=== PATIENT | female | born 1940 | race Caucasian/White ===

== ENCOUNTER → 2016-05-10 | Outpatient (CLI) | payer MEDICARE ==
[~2016-05-10] MED LIST: ALBU18HF INH; ALBU6.7H INH; ASPI325T4 PO; BIOT1CAP3 PO; BUTA1CAP30 PO; CALC1TAB90 PO; CHOL2000 PO; CIME200T4 PO; COD1CAPS2 PO; CODE30TA3 PO; FAMO40TA61 PO; FLUN25SP NAS; FLUT1DIS3 INH; GLUC1TAB35 PO; GUAI-103 PO; GUAI118L19 PO; HYDR-882 PO; HYDR12.53 PO; IBAN150T PO; LISI-167 PO; LORA10TA75 PO; LOVA40TA2 PO; MAGN100T6 PO; OXAZ15CA PO; PHEN-418 PO; POTASSIUM BICARB PO; PRED10TA14 PO; TIOT18CA INH
== END | disposition home or self-care (01) ==
LOC: ROC 07:57
PROVIDERS: ATTEND Radiology Radiation Oncology
DX: C34.11 Malignant neoplasm of upper lobe, right bronchus or lung (principal); J44.9 Chronic obstructive pulmonary disease, unspecified; Z87.891 Personal history of nicotine dependence
CPT/HCPCS: G0463

== ENCOUNTER → 2016-09-12 | Outpatient (CLI) | payer MEDICARE ==
[2016-09-12 15:55] LABS: ASPARTATE AMINO TRANSFERASE 18 U/L (15-37); BLOOD UREA NITROGEN 11 mg/dL (7-18)
== END | disposition home or self-care (01) ==
LOC: CFH 13:05
PROVIDERS: ATTEND Internal Medicine Hematology & Oncology
DX: Z51.11 Encounter for antineoplastic chemotherapy (principal); C34.11 Malignant neoplasm of upper lobe, right bronchus or lung
CPT/HCPCS: 36415; 80053; 85025

== ENCOUNTER → 2017-01-25 | Outpatient (CLI) | payer MEDICARE ==
[~2017-01-25] MED LIST changes: +ASPI325T17 PO; -ASPI325T4 PO; -CIME200T4 PO; +CIME200T6 PO
== END | disposition home or self-care (01) ==
LOC: ROC 08:30
PROVIDERS: ATTEND Radiology Radiation Oncology
DX: C34.11 Malignant neoplasm of upper lobe, right bronchus or lung (principal)
CPT/HCPCS: G0463

== ENCOUNTER → 2017-03-27 | Outpatient (CLI) | payer MEDICARE ==
[2017-03-27 12:46] LABS: ANION GAP 4 mmol/L (5-15); CALCIUM 8.4 mg/dL (8.5-10.1); CHLORIDE 108 mmol/L (98-107); CREATININE 0.85 mg/dL (0.55-1.02)
== END | disposition home or self-care (01) ==
LOC: CFH 10:50
PROVIDERS: ATTEND Internal Medicine Hematology & Oncology
DX: C34.11 Malignant neoplasm of upper lobe, right bronchus or lung (principal)
CPT/HCPCS: 36415; 80048

== ENCOUNTER → 2017-04-11 | Outpatient (CLI) | payer MEDICARE | END | disposition home or self-care (01) | LOC: ROC 10:56 | PROVIDERS: ATTEND Radiology Radiation Oncology | DX: Z08 Encounter for follow-up examination after completed treatment for malignant neoplasm (principal); C34.91 Malignant neoplasm of unspecified part of right bronchus or lung; Z79.82 Long term (current) use of aspirin | CPT/HCPCS: G0463 ==

== ENCOUNTER → 2017-08-26 | Outpatient (CLI) | payer MEDICARE ==
[2017-08-26 12:31] LABS: BASOPHILS # (AUTO) 0.03 x10^3/uL (0-0.1); BASOPHILS % (AUTO) 0 % (0-1); EOSINOPHILS # (AUTO) 0.07 x10^3/uL (0-0.4); EOSINOPHILS % (AUTO) 1 % (1-7); LYMPHOCYTES # (AUTO) 1.26 x10^3/uL (1-3.4); LYMPHOCYTES % (AUTO) 18 % (22-44); MD NO; MEAN CORPUSCULAR HEMOGLOBIN 28.5 pg (27.0-34.8); MEAN CORPUSCULAR HGB CONC 32.9 g/dL (32.4-35.8); MEAN CORPUSCULAR VOLUME 86.7 fL (80-100); MEAN PLATELET VOLUME 8.1 fL (7.4-10.4); MONOCYTES # (AUTO) 0.21 x10^3/uL (0.2-0.8); MONOCYTES % (AUTO) 3 % (2-9); NEUTROPHILS # (AUTO) 5.41 x10^3/uL (1.8-6.8); NEUTROPHILS % (AUTO) 78 % (42-75); PLATELET COUNT 267 x10^3/uL (130-400); RED BLOOD COUNT 4.71 x10^6/uL (3.82-5.3); RED CELL DISTRIBUTION WIDTH 14.2 % (9.6-15.2)
[2017-08-26 12:41] LABS: ALANINE AMINOTRANSFERASE 34 U/L (12-78); ALBUMIN 3.9 g/dL (3.4-5.0); ANION GAP 6 mmol/L (5-15); CALCIUM 9.1 mg/dL (8.5-10.1); CHLORIDE 106 mmol/L (98-107); CHOLESTEROL, TOTAL 192 mg/dL (140-239)
[2017-08-26 12:44] LABS: ALKALINE PHOSPHATASE 53 U/L (45-117); BILIRUBIN,TOTAL 0.5 mg/dL (0.2-1.0); CHOL/HDL RATIO 2.4; CREATINE KINASE, TOTAL 41 U/L (26-192); CREATININE 0.88 mg/dL (0.55-1.02); HDL CHOL % 42 % (28-40); HDL CHOLESTEROL (DIRECT) 81 mg/dL (40-60); LDL CHOLESTEROL,CALCULATED 88 mg/dL (54-169); LDL/HDL RATIO 1.1 (0.5-3.0); TOTAL PROTEIN 6.9 g/dL (6.4-8.2); TRIGLYCERIDES 115 mg/dL (50-200); VLDL CHOLESTEROL 23 mg/dL (0-25)
== END | disposition home or self-care (01) ==
LOC: CFH 09:11
PROVIDERS: ATTEND Internal Medicine Hematology & Oncology
DX: C34.11 Malignant neoplasm of upper lobe, right bronchus or lung (principal); E78.2 Mixed hyperlipidemia
CPT/HCPCS: 36415; 80053; 80061; 82550; 85025

== ENCOUNTER → 2017-09-16 | Outpatient (CLI) | payer MEDICARE ==
[~2017-09-16] MED LIST changes: -OXAZ15CA PO; +OXAZ15CA3 PO
== END | disposition home or self-care (01) ==
LOC: ROC 08:36
PROVIDERS: ATTEND Radiology Radiation Oncology
DX: C34.11 Malignant neoplasm of upper lobe, right bronchus or lung (principal)
CPT/HCPCS: G0463

== ENCOUNTER → 2018-02-19 | Outpatient (CLI) | payer MEDICARE ==
[~2018-02-19] MED LIST changes: +HYDR-3653 PO; -HYDR-882 PO; +HYDR12.517 PO; -HYDR12.53 PO
[2018-02-19 12:33] LABS: BASOPHILS # (AUTO) 0.01 x10^3/uL (0-0.1); BASOPHILS % (AUTO) 0 % (0-1); EOSINOPHILS # (AUTO) 0.13 x10^3/uL (0-0.4); EOSINOPHILS % (AUTO) 2 % (1-7); LYMPHOCYTES # (AUTO) 1.56 x10^3/uL (1-3.4); LYMPHOCYTES % (AUTO) 21 % (22-44); MD NO; MEAN CORPUSCULAR HEMOGLOBIN 28.4 pg (27.0-34.8); MEAN CORPUSCULAR HGB CONC 33.1 g/dL (32.4-35.8); MEAN PLATELET VOLUME 8.1 fL (7.4-10.4); MONOCYTES # (AUTO) 0.38 x10^3/uL (0.2-0.8); MONOCYTES % (AUTO) 5 % (2-9); NEUTROPHILS # (AUTO) 5.29 x10^3/uL (1.8-6.8); NEUTROPHILS % (AUTO) 72 % (42-75); PLATELET COUNT 276 x10^3/uL (130-400); RED BLOOD COUNT 4.48 x10^6/uL (3.82-5.3); RED CELL DISTRIBUTION WIDTH 15.4 % (9.6-15.2)
[2018-02-19 12:58] LABS: ALANINE AMINOTRANSFERASE 27 U/L (12-78); ALBUMIN 3.7 g/dL (3.4-5.0); ANION GAP 8 mmol/L (5-15); CALCIUM 9.4 mg/dL (8.5-10.1); CHLORIDE 103 mmol/L (98-107); CREATININE 1.06 mg/dL (0.55-1.02)
[2018-02-19 13:00] LABS: ALKALINE PHOSPHATASE 54 U/L (45-117); BILIRUBIN,TOTAL 0.3 mg/dL (0.2-1.0); TOTAL PROTEIN 7.2 g/dL (6.4-8.2)
== END | disposition home or self-care (01) ==
LOC: CFH 10:24
PROVIDERS: ATTEND Internal Medicine Hematology & Oncology
DX: Z51.11 Encounter for antineoplastic chemotherapy (principal); C34.11 Malignant neoplasm of upper lobe, right bronchus or lung
CPT/HCPCS: 36415; 80053; 85025

== ENCOUNTER 2018-02-27 08:30 | Outpatient (CLI) | payer MEDICARE ==
[2018-02-27] MEDS ORDERED: OMNIPAQUE 350 MG/ML, 100ML BOTTLE ONE (15:56)
== END 2018-02-27 23:59 | disposition home or self-care (01) ==
LOC: CFH 08:30
PROVIDERS: ATTEND Internal Medicine Hematology & Oncology
DX: C34.11 Malignant neoplasm of upper lobe, right bronchus or lung (principal); J43.9 Emphysema, unspecified; I70.0 Atherosclerosis of aorta; R91.1 Solitary pulmonary nodule; M19.012 Primary osteoarthritis, left shoulder; M19.011 Primary osteoarthritis, right shoulder; M47.899 Other spondylosis, site unspecified
CPT/HCPCS: 71260; 74177; Q9967